=== PATIENT | male | born 1960 ===

== ENCOUNTER 2018-09-28 14:57 | Emergency (ER) | payer BC ==
[2018-09-28 15:16] VITALS: BP 130/78
--- NOTE | 2018-09-28 15:26 | UC ---
UC General HPI - HPI Summary HPI Summary: PT NOTED SOME PAIN IN HIS R BUTTOCK INTO HIS R LEG ABOUT 1 HOUR AFTER GOLFING YESTERDAY AFTERNOON. HE DENIES ANY HX OF INJURY. HE HAS NO FEVER, ABDOMINAL PAIN OR WEAKNESS TO HIS LEGS. HE DENIES SADDLE ANESTHESIA, BOWEL/BLADDER DYSFUNCTION. HE DENIES CALF PAIN AND SWELLING. HE HAS THE [id number] IN HIS R BUTTOCK INTO R LEG. HE TOOK AN NSAID LAST PM WHICH HELPED. - History of Current Complaint Chief Complaint: UCLowerExtremity Stated Complaint: RT LEG PAIN/NUMBNESS Time Seen by Provider: 09/28/18 15:13 Hx Obtained From: Patient Timing: Constant Pain Intensity: 6 Aggravating: WALLET IN R BACK POCKET Associated Signs & Symptoms: Negative: Abdominal Pain - Allergy/Home Medications Allergies/Adverse Reactions: Allergies Allergy/AdvReac Type Severity Reaction Status Date / Time No Known Allergies Allergy Verified 09/28/18 15:16 Home Medications: Home Medications Simvastatin 20 mg PO DAILY 09/28/18 [History Confirmed 09/28/18] PMH/Surg Hx/FS Hx/Imm Hx Endocrine History: Dyslipidemia - Surgical History Surgical History: None - Family History Known Family History: Positive: Non-Contributory - Social History Occupation: Employed Full-time Alcohol Use: Occasionally Substance Use Type: None Smoking Status (MU): Never Smoked Tobacco Review of Systems All Other Systems Reviewed And Are Negative: No Constitutional: Negative: Fever, Chills Skin: Negative: Rash Respiratory: Negative: Shortness Of Breath, Other Cardiovascular: Negative: Palpitations, Chest Pain Gastrointestinal: Negative: Abdominal Pain Motor: Negative: Weakness Musculoskeletal: Negative: Decreased ROM Neurological: Positive: Paresthesia - RLE, Numbness - RLE. Negative: Weakness Physical Exam Triage Information Reviewed: Yes Appearance: Well-Appearing Vital Signs: Initial Vital Signs Temp 97.8 F 09/28/18 15:12 Pulse 60 09/28/18 15:12 Resp 16 09/28/18 15:12 BP 130/78 09/28/18 15:12 Pulse Ox 100 09/28/18 15:12 Vital Signs Reviewed: Yes ENT: Positive: Normal ENT inspection Neck: Positive: Supple, Nontender, No Lymphadenopathy, Other: - C-SPINE NON TENDER AND ROM INTACT. Respiratory: Positive: Lungs clear, Normal breath sounds Cardiovascular: Positive: RRR, No Murmur Abdomen Description: Positive: Nontender, No Organomegaly, Soft. Negative: Pulsatile Mass Bowel Sounds: Positive: Present Musculoskeletal: Positive: Other: - BACK= no gross deformity, swelling, discoloration or rash. spine is non tender and rom intact throughout. no saddle anesthesia. pain with palpation R sciatic notch only. + straight leg raise on R only. 5/5 strength, 2+ reflexes and sensation intactx4. steady gait. no calf swelling, cords or tenderness. Neurological: Positive: Alert Psychological: Positive: Age Appropriate Behavior Skin Exam: Normal Skin: Negative: Rashes Course/Dx - Differential Dx - Multi-Symptom Differential Diagnoses: Other - non toxic. no acute abdomen. no concern for infection. no concern for fx. exam c/w sciatica. - Diagnoses Provider Diagnosis: Sciatica Discharge - Sign-Out/Discharge Documenting (check all that apply): Patient Departure All imaging exams completed and their final reports reviewed: No - Discharge Plan Condition: Stable Disposition: HOME Prescriptions: Cyclobenzaprine TAB* [Flexeril 10 MG TAB*] 10 mg PO TID PRN #10 tab PRN Reason: Spasms - Muscle Naproxen [Naprosyn 500 mg tab] 500 mg PO BID 5 Days #10 tablet Patient Education Materials: Sciatica (ED) Referrals: Buck Kaminski MD [Primary Care Provider] - 5 Days Additional Instructions: REMOVE WALLET FROM BACK POCKET - Billing Disposition and Condition Condition: STABLE Disposition: Home - Attestation Statements Provider Attestation: Per institutional requirements, I have reviewed the chart, however, I was not consulted specifically or made aware of this patient by the midlevel provider. I did not personally evaluate, interact with , or disposition this patient.
== END 2018-09-28 15:38 | disposition home or self-care (01) ==
LOC: UCCORT 14:57
DX: M54.30 Sciatica, unspecified side (principal); E78.5 Hyperlipidemia, unspecified
CPT/HCPCS: 99202; G0463